=== PATIENT | male | born 1940 | race Caucasian/White ===

== ENCOUNTER → 2017-09-17 19:34 | Outpatient (CLI) | payer MEDICARE, OTHER ==
[2014-12-09 06:02] VITALS: BMI 34.8
[~2017-09-17 19:34] MED LIST: ADVAIR 500/501 DISK INH; CALAN SR240 MG PO; CIPRO500 MG PO; FLOMAX0.4 MG PO; LODINE400 MG PO; PERCOCET 10/3251 TA1 PO; ZESTRIL20 MG PO; ZOCOR40 MG PO; ZOLOFT50 MG PO
== END | disposition home or self-care (01) ==
LOC: D.SLEEP 09-05 20:00
DX: G47.10 Hypersomnia, unspecified (principal); G47.33 Obstructive sleep apnea (adult) (pediatric)

== ENCOUNTER → 2017-10-14 18:12 | Outpatient (CLI) | payer MEDICARE, OTHER ==
[2014-12-09 06:02] VITALS: BMI 34.8
[2017-10-14 18:52] LABS: CHOL - HDL RATIO 2.7 ratio (2.3-4.9); LDL-HDL RATIO 1.3 ratio (1.5-3.5)
== END | disposition home or self-care (01) ==
LOC: D.LABREF 18:12
PROVIDERS: Internal Medicine Cardiovascular Disease
DX: E78.5 Hyperlipidemia, unspecified (principal)

== ENCOUNTER → 2017-12-09 09:25 | Outpatient (CLI) | payer MEDICARE, OTHER ==
[2014-12-09 06:02] VITALS: BMI 34.8
--- NOTE | ~2017-12-09 | EC ---
PATIENT:MONI REDDING JR DATE OF SERVICE: 12/09/17 SEX: M MEDICAL RECORD: [id number] DATE OF : 38 LOCATION:[facility] AGE OF PATIENT: 77 ADMISSION DATE: 12/09/17 REFERRING PHYSICIAN: INTERPRETING PHYSICIAN: SHRUTI HALL MD ECHOCARDIOGRAM REPORT ECHO CHARGES 4 ECHO COMPLETE CLINICAL DIAGNOSIS: A-FIB ECHOCARDIOGRAPHIC MEASUREMENTS (adult normal given) AC root (d.<3.7cm) 4.3 cm LV Septum d (<1.2 cm> 1.5 cm Valve Excursion 2.2 cm LV Septum (systole) 1.7 cm Left Atria (s.<4.0cm> 3.3 cm LVPW d(<1.2cm) 1.3 cm RV (d.<2.3cm) 3.1 cm LVPW (sytole) 2.2 cm LV diastole(<5.6CM) 5.6 cm MV E-F(>70mm/sec) cm LV systole 3.2 cm LVOT Diameter 1.9 cm MV exc.(>10mm) cm Est.ejection fraction (50-75%) % Pericardial Effusion N DOPPLER: LVIT cm/sec A 41.0 cm/sec E 74.0 cm/sec LA cm/sec RVSP 37.3 mmHg LVOT 100 cm/sec AOP1/2T m/s Asc. Ao 120 cm/sec RVOT 60.0 cm/sec RA cm/sec PA 83.0 cm/sec AV Gradient Peak 5.7 mmHg AV Mean 2.8 mmHg AV Area 2.0 cm MV Gradient Peak 4.2 mmHg MV Mean 1.1 mmHg MV Area cm COMMENTS: Mountain Guide: Americo ANAYAOE Reimbursement Rep: Marii Hall TAPE# PACS DATE OF SERVICE: 12/09/2017 PROCEDURE: Transthoracic echocardiogram. FINDINGS: 1. Left ventricle is difficult to see, but there appears to be left ventricular hypertrophy that is [id number] in nature. The patient has inflow characteristics that are normal. There are no obvious regional wall motion abnormalities. 2. The left atrium is grossly normal. ECHOCARDIOGRAM REPORT [id number] MONI REDDING EAALICJA HOLMAN 3. The right ventricle shows evidence of mild dilatation with normal function. 4. The right atrium is mildly dilated. 5. The aortic valve is grossly normal. There is trace aortic insufficiency seen without concomitant pressure halftime measurements. 6. The pulmonic valve is not well visualized. There is trace pulmonic insufficiency. 7. There is no pericardial effusion. CONCLUSIONS: The patient has evidence of mild hypertensive heart disease with moderate tricuspid regurgitation, mild elevations in right ventricular systolic pressures. TRANSINT:[id number] Voice Confirmation ID: [id number] DOCUMENT ID: [id number] SHRUTI HALL MD at 1038 CC: [id number] DICTATION DATE: 12/10/17 1004 CLINICAL PHARMACOLOGIST: 12/10/17 1055 [facility] CLI 12/09/17 [facility] [address] [place] [address]
== END | disposition home or self-care (01) ==
LOC: D.ECHO 12-06 09:00
DX: I48.91 Unspecified atrial fibrillation (principal)

== ENCOUNTER → 2018-04-07 09:32 | Outpatient (CLI) | payer MEDICARE, OTHER ==
[2014-12-09 06:02] VITALS: BMI 34.8
--- NOTE | ~2018-04-07 | EC ---
PATIENT:MONI REDDING DATE OF SERVICE: 04/07/18 SEX: M MEDICAL RECORD: [id number] DATE OF : 38 [facility] AGE OF PATIENT: 77 ADMISSION DATE: 04/07/18 REFERRING PHYSICIAN: INTERPRETING PHYSICIAN: SHRUTI HALL MD ECHOCARDIOGRAM REPORT ECHO CHARGES 4 ECHO COMPLETE Date: 04/07 CLINICAL DIAGNOSIS: HTN/A-FIB/CHF ECHOCARDIOGRAPHIC MEASUREMENTS (adult normal given) AC root (d.<3.7cm) 4.0 cm LV Septum d (<1.2 cm> 1.3 cm Valve Excursion 2.0 cm LV Septum (systole) 2.0 cm Left Atria (s.<4.0cm> 3.7 cm LVPW d(<1.2cm) 1.3 cm RV (d.<2.3cm) 3.1 cm LVPW (sytole) 2.0 cm LV diastole(<5.6CM) 5.5 cm MV E-F(>70mm/sec) cm LV systole 3.2 cm LVOT Diameter 1.9 cm MV exc.(>10mm) cm Est.ejection fraction (50-75%) % DOPPLER: LVIT cm/sec A 38.0 cm/sec E 62.0 cm/sec LA cm/sec RVSP 35.0 mmHg LVOT 116 cm/sec AOP1/2T m/s Asc. Ao 131 cm/sec RVOT 66.0 cm/sec RA cm/sec PA 78.0 cm/sec AV Gradient Peak 6.9 mmHg AV Mean 3.2 mmHg AV Area 2.2 cm MV Gradient Peak 3.8 mmHg MV Mean 1.3 mmHg MV Area cm COMMENTS: Contract Officer: Americo ANAYAOE Field Laborer: 4 Dr. Hall TAPE# PACS Pericardial Effusion N DATE OF SERVICE: PROCEDURE: Transthoracic echocardiogram. FINDINGS: 1. The left ventricle shows mild left ventricular hypertrophy, ejection fraction is preserved. 2. The right atrium appears to be mildly dilated. Normal function. 3. The left atrium is normal size, normal function. 4. The aortic valve has a mildly dilated aortic root. There is trace aortic ECHOCARDIOGRAM REPORT [id number] MONI REDDING insufficiency. There is no evidence of stenosis. 5. The mitral valve has trace mitral regurgitation. 6. Tricuspid valve has trace to mild tricuspid regurgitation. RVSP is mildly elevated at 30-35 mmHg. 7. The pericardium is normal. 8. The right ventricle is mildly dilated with normal function. 9. The right atrium is normal. 10. The pulmonic valve has trace pulmonic insufficiency. 11. The pericardium is normal. CONCLUSION: The patient has evidence of mild left ventricular hypertrophy. The patient has a dilated aortic root. Further evaluation with CTA of the aortic root may be helpful for accurate sizing. TRANSINT:[id number] Voice Confirmation ID: [id number] DOCUMENT ID: [id number] SHRUTI HALL MD at 0819 CC: [id number] DICTATION DATE: 04/08/18 1117 PRODUCTION CONTROL TECHNOLOGIST: 04/08/18 1216 [facility] CLI 04/07/18 [id number] [place] [address]
== END | disposition home or self-care (01) ==
LOC: D.ECHO 09:32
DX: G47.33 Obstructive sleep apnea (adult) (pediatric) (principal); I10 Essential (primary) hypertension; I48.91 Unspecified atrial fibrillation; I50.9 Heart failure, unspecified